=== PATIENT | male | born 1995 ===

== ENCOUNTER 2025-06-14 17:07 | Emergency (ER) | payer BC ==
[~2025-06-14] VITALS: Ht 167.6 cm; Wt 54.4 kg
[2025-06-14 17:31] VITALS: BP 100/47
[2025-06-14 18:11] LABS: PLATELET COUNT (AUTO) 281 K/uL (152-348); RED BLOOD CELL COUNT(AUTO) 5.13 MIL/uL (4.06-5.63); RED CELL DISTRIBUTION WIDTH 14.1 % (12.1-16.2); WHITE BLOOD COUNT (AUTO) 11.9 K/uL (3.6-10.2)
[2025-06-14] MEDS ORDERED: LIDOCAINE 5% PATCH TD ONE (18:16)
[2025-06-14] MEDS ORDERED: KETOROLAC TROMETHAMINE 15 MG INJ ONE (18:17)
[2025-06-14] MEDS ORDERED: ACETAMINOPHEN 500 MG TABLET ONE ×2 (18:17)
[2025-06-14] MEDS: IV NORMAL SALINE 1000 ML BAG IV ONE (18:26)
[2025-06-14] MEDS: KETOROLAC TROMETHAMINE 15 MG INJ IVP ONE (18:27)
[2025-06-14] MEDS: ACETAMINOPHEN 500 MG TABLET PO ONE (18:27)
[2025-06-14] MEDS: LIDOCAINE 5% PATCH TD ONE (18:27)
[2025-06-14 18:32] LABS: *BILIRUBIN,URIN NEGATIVE (NEGATIVE); *BLOOD, URINE 2+ (NEGATIVE); *CLARITY,URINE CLEAR (CLEAR); *COLOR,URINE YELLOW (YELLOW); *KETONES,URINE NEGATIVE (NEGATIVE); *PROTEIN,URINE 1+ (NEGATIVE); *UROBILINOGEN,URINE 0.2 E.U./dl (NORMAL); LEUKOCYTE ESTERASE ,URINE NEGATIVE (NEGATIVE); NITRITE, URINE NEGATIVE (NEGATIVE); UGLUCOSE NEGATIVE (NEGATIVE)
[2025-06-14 18:35] LABS: ASPARTATE AMINOTRANSFERASE 14.0 U/L (15-37); CREATININE 1.0 mg/dL (0.6-1.3); SODIUM SERUM 145.0 mmol/L (136-145); TOTAL PROTEIN, SERUM 7.9 g/dL (6.4-8.2); UREA NITROGEN, BLOOD 14.0 mg/dL (7-18)
[2025-06-14] MEDS ORDERED: IBUP-1955 PO (19:11)
[2025-06-14] MEDS ORDERED: LIDO30AD10 TP (19:11)
[2025-06-14] MEDS ORDERED: CYCL5TAB PO (19:11)
[2025-06-14 19:56] VITALS: BP 110/55; TEMP 98; O2SAT 98
== END 2025-06-14 19:54 | disposition home or self-care (01) ==
LOC: ER 17:07
DX: M54.50 Low back pain, unspecified (principal); R11.2 Nausea with vomiting, unspecified; Z91.013 Allergy to seafood
CPT/HCPCS: 99285; 96374; 76770; 80076; 80048; 81001; 83690; 85025; 36415; J1885; J7040; A4606; A4663; A9150